=== PATIENT | female | born 1965 | race Two or more races ===

== ENCOUNTER 2017-10-02 10:01 | Emergency (ER) | payer OTHER ==
[~2017-10-02] VITALS: Ht 152.4 cm; Wt 54.4 kg
[~2017-10-02 10:01] MED LIST: CARAFATE1 G PO
[2017-10-02] MEDS ORDERED: ORPHENADRINE C100 MG PO (13:25)
[2017-10-02] MEDS ORDERED: KETO10TA2 PO (13:25)
== END 2017-10-02 13:28 | disposition home or self-care (01) ==
LOC: ER 10:01
DX: S33.5XXA Sprain of ligaments of lumbar spine, initial encounter (principal); V49.9XXA Car occupant (driver) (passenger) injured in unspecified traffic accident, initial encounter; Y93.89 Activity, other specified; Y92.488 Other paved roadways as the place of occurrence of the external cause; Y99.8 Other external cause status

== ENCOUNTER 2019-02-13 02:55 | Emergency (ER) | payer OTHER ==
[~2019-02-13] VITALS: Ht 154.9 cm; Wt 56.7 kg
[~2019-02-13 02:55] MED LIST changes: +KETO10TA2 PO; +ORPHENADRINE C100 MG PO
[2019-02-13] MEDS ORDERED: GLYCOTROL CAPS1 EACH (03:01)
[2019-02-13] MEDS ORDERED: ZANTAC300 MG PO (08:13)
[2019-02-13] MEDS ORDERED: MOBIC15 MG PO ×2 (08:14)
== END 2019-02-13 08:26 | disposition home or self-care (01) ==
LOC: ER 02:55
DX: M79.622 Pain in left upper arm (principal); R10.13 Epigastric pain

== ENCOUNTER → 2019-02-23 | Emergency (ER) | payer OTHER ==
[~2019-02-23] VITALS: Ht 157.5 cm; Wt 57.2 kg
[~2019-02-23] MED LIST changes: +GLYCOTROL CAPS1 EACH; +MOBIC15 MG PO; +ZANTAC300 MG PO
== END | disposition left against medical advice (07) ==
LOC: ER 04:30
DX: Z53.20 Procedure and treatment not carried out because of patient's decision for unspecified reasons (principal)